=== PATIENT | male | born 1990 | race American Indian/Alaskan Native ===

== ENCOUNTER 2018-06-11 22:11 | Emergency (ER) | payer MEDICAID ==
[2018-06-11 22:18] VITALS: BP 119/80; PULSE 74; TEMP 97.4; O2SAT 100
--- NOTE | 2018-06-11 22:45 | C.PDOC ---
History Of Present Illness 27 year old male presents to the ER with a complaint of a painful lump to the left axillary area that he noticed today. Denies fever or chills. Time Seen by Provider: 06/11/18 22:29 Chief Complaint (Nursing): Abnormal Skin Integrity History Per: Patient History/Exam Limitations: no limitations Onset/Duration Of Symptoms: Hrs Current Symptoms Are (Timing): Still Present Location Of Injury: Left: Arm (Axillary) Quality Of Symptoms: Painful Recent travel outside of the [place]: No Past Medical History Reviewed: Historical Data, Nursing Documentation, Vital Signs Vital Signs: Last Vital Signs Temp 97.4 F L 06/11/18 22:16 Pulse 74 06/11/18 22:16 Resp 18 06/11/18 22:16 BP 119/80 06/11/18 22:16 Pulse Ox 100 06/11/18 22:16 Family History: States: Unknown Family Hx - Social History Hx Tobacco Use: No Hx Alcohol Use: No Hx Substance Use: No - Immunization History Hx Tetanus Toxoid Vaccination: No Hx Influenza Vaccination: Yes Hx Pneumococcal Vaccination: No Review Of Systems Constitutional: Negative for: Fever, Chills Skin: Positive for: Other (Painful lump to left axillary area) Physical Exam - Physical Exam Appears: Non-toxic Skin: Normal Color, Warm, Dry Head: Atraumatic, Normacephalic Eye(s): bilateral: Normal Inspection Lymphatic: No Adenopathy Extremity: Normal ROM (x4), Other (Pea sized tender indurated nonfluctuant mass to left axilla, no streaking) Neurological/Psych: Oriented x3, Normal Speech, Normal Motor, Normal Sensation ED Course And Treatment O2 Sat by Pulse Oximetry: 100 (room air) Pulse Ox Interpretation: Normal Progress Note: Patient is resting comfortably in the ER in no acute distress, vitals are stable, explained that there is no indication for I&D at this time, will discharge home with Rx for antibiotics, advised to apply warm compress to area and follow up for wound check. Disposition Counseled Patient/Family Regarding: Diagnosis, Need For Followup, Rx Given - Disposition Referrals: Dawna Irving MD [Primary Care Provider] - Disposition: HOME/ ROUTINE Disposition Time: 22:43 Condition: STABLE Additional Instructions: Apply warm compress to area Take medications as directed Wound check in 2 days Return to ER if severe pain, moderate swelling, draining, fever or worse Prescriptions: Cephalexin [cephalexin] 500 mg PO QID #20 cap Ibuprofen [Motrin] 600 mg PO Q6H #20 tab Instructions: Boil (DC) Forms: [facility] (Slovak) - Clinical Impression Clinical Impression: Abscess - PA / BAG LINER / Resident Statement MD/DO has reviewed & agrees with the documentation as recorded. - Scribe Statement The provider has reviewed the documentation as recorded by the Radibsharif Veliz All medical record entries made by the Radibsharif were at my direction and personally dictated by me. I have reviewed the chart and agree that the record accurately reflects my personal performance of the history, physical exam, medical decision making, and the department course for this patient. I have also personally directed, reviewed, and agree with the discharge instructions and disposition.
[2018-06-11 22:50] VITALS: RESP 20
== END 2018-06-11 22:49 | disposition home or self-care (01) ==
LOC: SUPCPDRO 22:11 → C.ER 22:11
DX: L02.412 Cutaneous abscess of left axilla (principal)